=== PATIENT | male | born 1940 | race Two or more races ===

== ENCOUNTER 2016-10-28 15:42 | Inpatient (IN) | payer OTHER ==
[~2016-10-28] VITALS: Ht 167.6 cm; Wt 70.8 kg
[~2016-10-28 15:42] MED LIST: ASPI-991 PO; DIAZ10TA4 PO; HYDR-3326 PO; Isosorbide Mononitrate PO; METO25TA20 PO; PANT40TA2 PO; SIMV20TA2 PO; TAMS-12 PO
--- NOTE | 2016-10-28 15:50 | NUR ---
BIBRA MID STERNAL CHEST PRESSURE 9/10, NON RADIATING X 2 DAYS WITH SOB. PATIENT IS AAO3. APPEARS IN NO ACUTE DISTRESS, RESPIRATION EVEN AND UNLABORED. SKIN IS WARM TO TOUCH AND NON DIAPHORETIC. AFEBRILE. VSS
[2016-10-28] MEDS ORDERED: ALBUTEROL FS 2.5 MG/3 ML VIAL.NEB ONE (16:24)
[2016-10-28] MEDS ORDERED: IPRATROPIUM NEB FS 0.5 MG/2.5 ML AMPUL.NEB ONE (16:24)
[2016-10-28] MEDS ORDERED: IPRATROPIUM NEB FS 0.5 MG/2.5 ML AMPUL.NEB NEB ONE (16:30)
[2016-10-28] MEDS ORDERED: ALBUTEROL FS 2.5 MG/3 ML VIAL.NEB NEB ONE (16:30)
[2016-10-28 16:31] LABS: BASOPHILS # (AUTO) 0.1 /CMM (0.0-0.2); BASOPHILS % (AUTO) 0.8 % (0.0-2.0); EOSINOPHILS # (AUTO) 1.7 /CMM (0.0-0.7); EOSINOPHILS % (AUTO) 23.7 % (0.0-6.0); HEMATOCRIT 44 % (39-51); HEMOGLOBIN 14.9 g/dL (13.5-17.5); LYMPHOCYTES # (AUTO) 0.7 /CMM (0.8-4.8); LYMPHOCYTES % (AUTO) 10.5 % (20.0-44.0); MEAN CORPUSCULAR HEMOGLOBIN 33 PG (26.0-33.0); MEAN CORPUSCULAR HGB CONC 34 g/dl (31.0-36.0); MEAN CORPUSCULAR VOLUME 98 fL (80-96); MONOCYTES # (AUTO) 0.4 /CMM (0.1-1.30); MONOCYTES % (AUTO) 5.3 % (2.0-12.0); NEUTROPHILS # (AUTO) 4.1 /CMM (1.8-8.9); NEUTROPHILS % (AUTO) 59.7 % (43.0-81.0); PLATELET COUNT (AUTO) 305 /CMM (150-450); RDW COEFFICIENT OF VARIATION 15.1 (11.5-15.0); RED BLOOD CELL COUNT(AUTO) 4.48 MIL/uL (4.5-6.0)
[2016-10-28 16:48] LABS: CALCIUM, SERUM 8.8 mg/dL (8.5-10.1); CREATININE 0.9 mg/dL (0.6-1.3); POTASSIUM 4.3 mmol/L (3.5-5.1)
[2016-10-28 16:49] LABS: INR 1.08 (0.87-1.13); PROTHROMBIN TIME 11.2 SECS (9.5-12.7)
[2016-10-28 16:55] LABS: TROPONIN I 0.068 ng/mL (0.00-0.056)
[2016-10-28 17:00] LABS: ALBUMIN 2.7 g/dL (3.4-5.0); BILIRUBIN,DIRECT 0.1 mg/dL (0.0-0.2); BILIRUBIN,TOTAL 0.6 mg/dL (0.2-1.0); TOTAL PROTEIN, SERUM 6.4 g/dL (6.4-8.2)
--- NOTE | 2016-10-28 17:28 | NUR ---
DR ROBERTS ON THE PHONE WITH DR WEST CASTILLO REGARDING PATIENT ADMISSION.
[2016-10-28] MEDS ORDERED: NITROGLYCERIN PACKET 1 GM PACKET TOP ONE (17:30)
[2016-10-28] MEDS ORDERED: ASPIRIN 325 MG TABLET PO ONE (17:30)
[2016-10-28] MEDS ORDERED: FUROSEMIDE 20 MG/2 ML VIAL IV ONE (17:30)
[2016-10-28] MEDS ORDERED: ENOXAPARIN SODIUM 60 MG/0.6 ML DISP.SYRIN SQ ONE (17:30)
[2016-10-28] MEDS ORDERED: ASPIRIN 325 MG TABLET ONE (17:31)
[2016-10-28] MEDS ORDERED: ENOXAPARIN SODIUM 80 MG/0.8 ML DISP.SYRIN SQ ONE (17:32)
[2016-10-28] MEDS ORDERED: NITROGLYCERIN PACKET 1 GM PACKET ONE (17:32)
[2016-10-28] MEDS ORDERED: FUROSEMIDE 20 MG/2 ML VIAL ONE (17:32)
--- NOTE | 2016-10-28 17:40 | NUR ---
PT MEDICATED ORDERED.
[2016-10-28] MEDS ORDERED: TRAZ-144 PO (18:12)
[2016-10-28 18:23] LABS: ABG BASE EXCESS 0.6 mmol/L; ABG OXYGEN SATURATION 93.7 % (92.0-98.5); ABG PCO2 34.1 mmHg (35.0-45.0); ABG PH 7.461 (7.350-7.450); ABG PO2 66.7 mmHg (75.0-100.0); AaDO2 42.2 mmHg; COHb 4.7 % (0.5-1.5); MetHb 0.3 % (0.0-1.5); SITE, ABG Left Radial; VENT MODE, BG room air
--- NOTE | 2016-10-28 18:43 | NUR ---
REPORT GIVEN TO RITIKA SEGURA FOR THIAGO RM 108
--- NOTE | 2016-10-28 18:47 | NUR ---
pt transported to [facility], vss.
--- NOTE | 2016-10-28 19:00 | NUR ---
RN- PT IN THE STATION PACING, DEMANDING FOR PAIN MEDICATION. STATES "I NEED TWO ASPIRINS". WHEN ASKED WHERE PAIN IS, PT REPEATS DEMANDS. CALMING MEASURES RENDERED. INFORMED PT THAT ASPIRIN DOSE WAS ALREADY GIVEN IN THE ER AND THAT HE IS STILL BEING PROCESSED W/ ADMISSION AND MEDICATIONS ARE NOT YET UPDATED W/ SYSTEM. CALLED ADMITTING, ADMITTING STATED THAT "WE ARE WORKING ON IT". CALLED TIME CYCLE OPERATOR AND INFORMED ABOUT SITUATION. ORDERS, PER AM NURSE, WERE FAXED TO PHARMACY ALREADY. UNABLE TO PULL PT'S INFORMATION IN COMPUTER AT THIS TIME. APOLOGIZED TO PT AND REQUESTED PT TO CALMLY WAIT IN BED.
--- NOTE | 2016-10-28 19:15 | NUR ---
RN- PT BACK IN THE NURSING STATION, PACING AND DEMANDING FOR ASPIRIN MEDICATION AGAIN. CALMING MEASURES RENDERED. PT STARTED SCREAMING, "WHY ARE YOU NOT HELPING ME". INFORMED PT THAT WE ARE STILL WAITING FOR ADMITTING TO PROCESS OUR REQUEST. DR CASTILLO WAS INFORMED BY AM SHIFT ABOUT PAIN MEDICATION. ACCORDING TO DR CASTILLO, ORDERS HAS ALREADY BEEN GIVEN AND TO FIND THEM. STILL UNABLE TO BRING UP PT'S FILE IN [facility] AT THIS TIME.
[2016-10-28] MEDS ORDERED: TEMAZEPAM 15 MG CAPSULE PO PRN (19:30)
--- NOTE | 2016-10-28 19:30 | NUR ---
RN- ABLE TO ADD PATIENT BY LOOKING AT ER PT HISTORY. PT CO OF HEADACHE. TYLENOL 650MG PO GIVEN AT THIS TIME. TOLERATED WELL. WILL MONITOR FOR S/SX OF PAIN. PT CALM AT THIS TIME.
[2016-10-28] MEDS ORDERED: ACETAMINOPHEN 325 MG TABLET ONE (19:31)
[2016-10-28] MEDS: ACETAMINOPHEN 325 MG TABLET PO PRN (19:36)
[2016-10-28 20:00] VITALS: BP 119/72
[2016-10-28] MEDS ORDERED: HYDROCODONE/APAP 5/325MG 1 EACH TABLET PO PRN (20:30)
[2016-10-28] MEDS ORDERED: DIAZEPAM 5 MG TABLET PO PRN (20:30)
[2016-10-28] MEDS: METOPROLOL TARTRATE 25 MG TABLET PO SCH (20:58)
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
[2016-10-28] MEDS ORDERED: SIMVASTATIN 20 MG TABLET PO SCH (22:00)
[2016-10-28] MEDS ORDERED: TRAZODONE 50 MG TABLET PO SCH (22:00)
--- NOTE | 2016-10-28 22:00 | NUR ---
RN- SMELLED CIGARETTE SMOKE COMING FROM THE PT'S ROOM. WHEN ASKED IF HE SMOKED PT DENIES. CHECKED PT 'S BATHROOM, CIGARETTE SMOKE IS STRONGER AND FOUND AN EXTINGUISHED CIGARETTE. REINFORMED THE PT THAT [facility] IS A NON SMOKING FACILITY AND DUE TO OXYGEN USE, IT IS DANGEROUS TO SMOKE IN THE ROOM. INFORMED PT THAT THE CIGARETTES NEEDED TO BE CONFISCATED AND WOULD BE RETURN WHEN DISCHARGED. PT BECAME INCREASINGLY AGITATED, AND GRABBED CIGARETTE OFF NURSES HANDS AND SCREAMED "LEAVE ME ALONE, I TOLD YOU TO LEAVE ME ALONE." SECURITY CALLED. PT ABLE TO CALM DOWN. CIGARETTES AND PUBLICATION DIRECTOR CONFISCATED. VALIUM 10 MG PO GIVEN FOR ANXIETY. WILL CONTINUE TO MONITOR BEHAVIOR.
[2016-10-28] MEDS ORDERED: SECONDARY IV SET 1 EA INFUS.SET MC ONE (22:26)
[2016-10-28] MEDS ORDERED: TEMAZEPAM 15 MG CAPSULE ONE (22:50)
--- NOTE | 2016-10-28 23:01 | NUR ---
RN- PT REQUESTED FOR SLEEPING MEDICATION. RESTORIL 15 MG GIVEN PRN FOR SLEEP. TOLERATED WELL. WILL MONITOR SLEEPING PATTERN.
[2016-10-29 04:00] VITALS: BP 104/50
[2016-10-29] MEDS ORDERED: ACETAMINOPHEN 325 MG TABLET ONE (05:40)
[2016-10-29] MEDS: ACETAMINOPHEN 325 MG TABLET PO PRN (05:44)
--- NOTE | 2016-10-29 05:47 | NUR ---
RN- PT CO CHEST PAIN OF 04/18. REQUESTED FOR TYLENOL "2 PILLS". PRN TYLENOL 650 MG GIVEN PO FOR PAIN. TOLERATED WELL. WILL MONITOR FOR S/SX OF PAIN.
[2016-10-29 06:26] LABS: BASOPHILS # (AUTO) 0.1 /CMM (0.0-0.2); BASOPHILS % (AUTO) 0.8 % (0.0-2.0); EOSINOPHILS # (AUTO) 2.5 /CMM (0.0-0.7); HEMATOCRIT 42 % (39-51); HEMOGLOBIN 13.9 g/dL (13.5-17.5); LYMPHOCYTES # (AUTO) 1.5 /CMM (0.8-4.8); LYMPHOCYTES % (AUTO) 17.4 % (20.0-44.0); MEAN CORPUSCULAR HEMOGLOBIN 33 PG (26.0-33.0); MEAN CORPUSCULAR HGB CONC 33 g/dl (31.0-36.0); MEAN CORPUSCULAR VOLUME 100 fL (80-96); MONOCYTES # (AUTO) 0.6 /CMM (0.1-1.30); MONOCYTES % (AUTO) 6.8 % (2.0-12.0); PLATELET COUNT (AUTO) 298 /CMM (150-450); RDW COEFFICIENT OF VARIATION 15.7 (11.5-15.0); RED BLOOD CELL COUNT(AUTO) 4.23 MIL/uL (4.5-6.0); WHITE BLOOD COUNT (AUTO) 8.8 K/uL (4.3-11.0)
--- NOTE | 2016-10-29 06:40 | NUR ---
RN- ALL NEEDS ATTENDED AND MET. NO S/SX OF ACUTE DISTRESS. WILL ENDORSE TO AM SHIFT FOR CONTINUATION OF CARE.
[2016-10-29 06:46] LABS: CREATININE 1.1 mg/dL (0.6-1.3)
[2016-10-29] MEDS ORDERED: PANTOPRAZOLE 40 MG TABLET.DR PO SCH (07:30)
--- NOTE | 2016-10-29 07:30 | NUR ---
RN INTIAL NOTE PT RECEIVED FROM PM NURSE. A/OX3. PT SLEEPING. TELE MONITOR SA W/BBB RATE 60'S. PT HAS BRP WITH MINIMUM ASSISTANCE . PT DIAPER CLEAN AND DRY. LFA 20G FLUSHED AND PATENT RW 18G FLUSHED AND PATENT. NC 2L FOR COMFORT. NO ACUTE S/S OF SOB. REPOSITIONED FOR SAFETY AND COMFORT. NO C/O PAIN. WILL CONTINUE TO MONITOR CLOSELY.
[2016-10-29 08:00] VITALS: BP 122/60
[2016-10-29] MEDS: METOPROLOL TARTRATE 25 MG TABLET PO SCH (08:46)
[2016-10-29] MEDS ORDERED: TAMSULOSIN 0.4 MG CAP.SR.24H PO SCH (09:00)
[2016-10-29] MEDS ORDERED: ISOSORBIDE MONONITRATE (30MG) 30 MG TAB.SR.24H PO SCH (09:00)
[2016-10-29] MEDS ORDERED: ASPIRIN EC 81 MG TABLET.DR PO SCH (09:00)
[2016-10-29 09:15] LABS: EOSINOPHILS % (MANUAL) 27 % (0-4); LYMPHOCYTES % (MANUAL) 13 % (16-48); MONOCYTES % (MANUAL) 13 % (0-11.0); NEUTROPHILS % (MANUAL) 47 (42-76)
[2016-10-29 09:16] LABS: ANISOCYTOSIS 1+; PLATELET ESTIMATE ADEQUATE
[2016-10-29] MEDS ORDERED: NITROGLYCERIN 0.4 MG/TAB BOTTLE SL PRN (09:30)
[2016-10-29] MEDS ORDERED: POTASSIUM CHLORIDE 20 MEQ TAB.PRT.SR PO ONE (09:30)
[2016-10-29 09:55] LABS: CHOLESTEROL 97 mg/dL (<200); HDL CHOLESTEROL 24 mg/dL (40-60); LDL 59 mg/dL (0-99); TRIGLYCERIDES 76 mg/dL (30-150)
--- NOTE | 2016-10-29 10:00 | NUR ---
RN NOTE PT C/O CHEST VERY AGITATED AFTER SEEING DR. ESCALERA YELLING AND SCREAMING SAYING HE DOES NOT WANT TO SEE HIM AGAIN. PT REDIRECTED EDUCATED ON THE IMPORTANCE OF RELAXING AND HOW GETTING UPSET IS MAKING THE PAIN WORSE. DR. DAVID ORDERED 10MG OF VALIUM AND NITRO.
--- NOTE | 2016-10-29 10:15 | NUR ---
RN NOTE PT STATED CHEST PAIN WAS RELIEVED.
[2016-10-29 12:00] VITALS: BP 116/63
--- NOTE | 2016-10-29 12:35 | NUR ---
BOLOGNA MAKER NOTE PT TRANSFERRED TO [facility] VIA AMBULANCE. GAVE REPORT TO EMT AND SPOKE TO JEREL SEGURA AND GAVE REPORT. PT STABLE PT LEFT IN GOWN HAD NO SHIRT ONLY PANTS AND GLASSES IN HIS BELONGINGS. WRIST BAND REMOVED LEFT WITH IV LFA 20G AND RW 18G PATENT AND FLUSHED. ALL DISCHARGE INSTRUCTIONS GIVEN, ALL QUESTIONS AND CONCERNS . BELONGING LIST SIGNED AND TAKEN BY EMT . PT KEPT CLEAN AND DRY. ALL MD ORDERS AND MEDICATIONS CARRIED OUT. Addendum: 10/29/16 at 1539 by MAURO DOUGLASS RN CD WITH MEDICAL INFORMATION SENT WITH PT.
[2016-10-29] MEDS ORDERED: DIAZEPAM 5 MG TABLET PO PRN (15:00)
[2016-10-29] MEDS ORDERED: ENOXAPARIN SODIUM 40 MG/0.4 ML DISP.SYRIN SQ SCH (18:00)
[2016-10-30] MEDS ORDERED: REGADENOSON 0.4 MG/5 ML DISP.SYRIN IVP ONE (08:00)
== END 2016-10-29 12:35 | disposition short-term general hospital (02) | DRG 282 ==
LOC: ER 15:43 → TELE-TD 19:43 → TELE1 19:56
PROVIDERS: ADMIT Internal Medicine; ATTEND Internal Medicine
DX: I21.4 Non-ST elevation (NSTEMI) myocardial infarction (principal); E87.6 Hypokalemia; F17.210 Nicotine dependence, cigarettes, uncomplicated; E78.5 Hyperlipidemia, unspecified; I25.10 Atherosclerotic heart disease of native coronary artery without angina pectoris; Z95.1 Presence of aortocoronary bypass graft; J44.9 Chronic obstructive pulmonary disease, unspecified; I11.9 Hypertensive heart disease without heart failure; N40.0 Benign prostatic hyperplasia without lower urinary tract symptoms; E11.9 Type 2 diabetes mellitus without complications; K57.30 Diverticulosis of large intestine without perforation or abscess without bleeding; N20.0 Calculus of kidney
CPT/HCPCS: 36415; 36600; 71010-TC; 80048-TC; 80061-TC; 80076-TC; 83880; 84484-TC; 85025-TC; 85730-TC; A4606; J1650; J1940; Z7610

== ENCOUNTER 2016-11-20 14:56 | Inpatient (IN) | payer OTHER ==
[~2016-11-20] VITALS: Ht 175.3 cm; Wt 69.4 kg
[~2016-11-20 14:56] MED LIST changes: +TRAZ-144 PO
--- NOTE | 2016-11-20 14:56 | NUR ---
BIB SELF, CC: CHEST PAIN X 4 DAYS, A POOR HISTORIAN, PATIENT IS UNABLE TO PROVIDE ACCURATE HISTORY, PATIENT IS VERBALLY RESPONSIVE, HAS A SCAR IN MID CHEST, CANNOT CONFIRM CARDIAC HISTORY, NO RESPIRATORY DISTRESS, WILL BE SEEN BY MD AT BEDSIDE, PLACED ON MONITOR, WILL CONTINUE TO MONITOR CLOSELY.
[2016-11-20 15:24] LABS: BASOPHILS % (AUTO) 0.5 % (0.0-2.0); EOSINOPHILS # (AUTO) 0.9 /CMM (0.0-0.7); EOSINOPHILS % (AUTO) 16.1 % (0.0-6.0); HEMATOCRIT 45 % (39-51); HEMOGLOBIN 14.6 g/dL (13.5-17.5); LYMPHOCYTES # (AUTO) 0.8 /CMM (0.8-4.8); LYMPHOCYTES % (AUTO) 13.6 % (20.0-44.0); MEAN CORPUSCULAR HEMOGLOBIN 32 PG (26.0-33.0); MEAN CORPUSCULAR HGB CONC 33 g/dl (31.0-36.0); MEAN CORPUSCULAR VOLUME 98 fL (80-96); MONOCYTES # (AUTO) 0.2 /CMM (0.1-1.30); MONOCYTES % (AUTO) 4.4 % (2.0-12.0); NEUTROPHILS # (AUTO) 3.8 /CMM (1.8-8.9); NEUTROPHILS % (AUTO) 65.4 % (43.0-81.0); PLATELET COUNT (AUTO) 362 /CMM (150-450); RDW COEFFICIENT OF VARIATION 16.2 (11.5-15.0); RED BLOOD CELL COUNT(AUTO) 4.55 MIL/uL (4.5-6.0); WHITE BLOOD COUNT (AUTO) 5.7 K/uL (4.3-11.0)
[2016-11-20] MEDS ORDERED: ASPIRIN 325 MG TABLET ONE (15:27)
[2016-11-20] MEDS ORDERED: NITROGLYCERIN 0.4 MG/TAB BOTTLE ONE (15:27)
[2016-11-20] MEDS ORDERED: LORAZEPAM INJ 2 MG/ML VIAL ONE (15:28)
[2016-11-20] MEDS ORDERED: ALBUTEROL FS 2.5 MG/3 ML VIAL.NEB NEB ONE (15:30)
[2016-11-20] MEDS ORDERED: ASPIRIN 325 MG TABLET PO ONE (15:30)
[2016-11-20] MEDS ORDERED: LORAZEPAM INJ 2 MG/ML VIAL IV ONE (15:30)
[2016-11-20] MEDS ORDERED: NITROGLYCERIN 0.4 MG/TAB BOTTLE SL ONE (15:30)
[2016-11-20 15:38] LABS: INR 1.1 (0.87-1.13); PROTHROMBIN TIME 11.5 SECS (9.5-12.7)
[2016-11-20] MEDS ORDERED: ALBUTEROL FS 2.5 MG/3 ML VIAL.NEB ONE (15:38)
[2016-11-20 15:40] LABS: ALBUMIN 2.9 g/dL (3.4-5.0); BILIRUBIN,DIRECT 0.2 mg/dL (0.0-0.2); BILIRUBIN,TOTAL 0.5 mg/dL (0.2-1.0); CALCIUM, SERUM 9.4 mg/dL (8.5-10.1); POTASSIUM 3.6 mmol/L (3.5-5.1); TOTAL PROTEIN, SERUM 6.6 g/dL (6.4-8.2)
[2016-11-20 15:43] LABS: TROPONIN I 0.053 ng/mL (0.00-0.056)
--- NOTE | 2016-11-20 15:47 | NUR ---
Unable to update medication information. Patient is a poor historian, sts "i don't recall my medications". Patient unbale to provide Pharmacy or PCP info. Called family/responsible green party listed on file with no answer and unable to leave a msg.
--- NOTE | 2016-11-20 16:05 | NUR ---
PATIENT ACCEPTED BY DR ANNA DODSON
[2016-11-20 17:00] VITALS: BP 125/69
--- NOTE | 2016-11-20 17:00 | NUR ---
tele planning division superintendent: admission admitted this 76 yr old male pt from [facility] with dx: chest pain/angina. awake, a/ox2-3; poor historian, very forgetful and easily gets irritated and anxious. reality orientation provided prn. noted with old scarring to chest area due to hx: cabg, but refused photo. no skin breakdown noted. oriented to room and surroundings. no c/o chest pain, sob, or any discomfort at this time. instructed to call for assistance. will continue to monitor. left message to dr. tejada re: admission. placed pt on tele sr=70's with bbb and pvc. Addendum: 11/20/16 at 1852 by GILLES CRUZ X RAY PHYSICIAN pt refused full body assessment, but able to check sacral/buttocks area with no skin breakdown noted.
--- NOTE | 2016-11-20 17:50 | NUR ---
tele traveling phlebotomist: notes dr. tejada called back with admitting orders. orders read back and carried out and acknowledged.
[2016-11-20] MEDS ORDERED: DEXTROSE 50%-WATER 50 ML DISP.SYRIN IV PRN (18:00)
[2016-11-20] MEDS ORDERED: INSULIN REGULAR, HUMAN 100 UNIT/ML 3 ML VIAL SQ PRN (18:00)
--- NOTE | 2016-11-20 18:20 | NUR ---
tele microbiology analyst: notes pt having dinner at this time. call light within reach. will monitor.
--- NOTE | 2016-11-20 19:00 | NUR ---
m/s steel rigger: notes pt remains very forgetful and easily gets irritated and anxious; verbally abusive at times. reality orientation provided prn. encouraged to verbalized feelings. 1:1 intervention provided prn. report given to khalida hook) for continuity of care.
--- NOTE | 2016-11-20 19:05 | NUR ---
RN NOTE RECEIVED REPORT. PT AAOX2-3, APPEARS ANXIOUS AND AGITATED. WANTS TO GO HOME. NO C/O CP OR SOB AT THIS TIME, NO S/S OF RESPIRATORY DISTRESS. TELE ATTACHED SHOWING SR WITH BBB'S AND PVC'S. IV INTACT AND PATENT, S/L. CALL LIGHT IN REACH, WILL MONITOR.
[2016-11-20] MEDS: DIAZEPAM 10 MG TABLET PO PRN (19:53)
[2016-11-20 20:00] VITALS: BP 109/61
[2016-11-20] MEDS: METOPROLOL TARTRATE 25 MG TABLET PO SCH (21:00)
[2016-11-20] MEDS: HYDROCODONE/APAP 5/325MG 1 EACH TABLET PO PRN (21:07)
[2016-11-20] MEDS: BLOOD SUGAR DIAGNOSTIC 1 EACH STRIP IN SCH (21:25)
[2016-11-20] MEDS ORDERED: SIMVASTATIN 20 MG TABLET PO SCH (22:00)
[2016-11-20] MEDS ORDERED: TRAZODONE 50 MG TABLET PO SCH (22:00)
[2016-11-21] VITALS: BP 109/77
--- NOTE | 2016-11-21 01:05 | NUR ---
RN NOTE NO DISTRESS NOTED AT THIS TIME. PT RESTING WITH EYES CLOSED. WILL CONT TO MONITOR.
[2016-11-21] MEDS: HYDROCODONE/APAP 5/325MG 1 EACH TABLET PO PRN ×3 (01:43→09:45)
--- NOTE | 2016-11-21 06:43 | NUR ---
RN NOTE NO SIGNIFICANT CHANGES THIS SHIFT. PT AWAKE AND ALERT, EASILY AGITATED AND DEMANDING. VERY ANXIOUS AT TIMES. NO C/O OF CP OR SOB AT THIS TIME. NO S/S OF RESPIRATORY DISTRESS. LEFT WRIST INTACT AND PATENT S/L. SAFETY AND COMFORT MEASURES RENDERED, CALL LIGHT IN REACH. WILL F/U WITH DAY SHIFT FOR WILD. NORCO PRN AT 0600 EFFECTIVE
[2016-11-21] MEDS: BLOOD SUGAR DIAGNOSTIC 1 EACH STRIP IN SCH ×2 (06:52→11:24)
[2016-11-21 07:40] LABS: BASOPHILS # (AUTO) 0.1 /CMM (0.0-0.2); BASOPHILS % (AUTO) 0.9 % (0.0-2.0); EOSINOPHILS # (AUTO) 1.2 /CMM (0.0-0.7); EOSINOPHILS % (AUTO) 14.8 % (0.0-6.0); HEMATOCRIT 41 % (39-51); HEMOGLOBIN 13.8 g/dL (13.5-17.5); LYMPHOCYTES # (AUTO) 1.6 /CMM (0.8-4.8); LYMPHOCYTES % (AUTO) 20.8 % (20.0-44.0); MEAN CORPUSCULAR HEMOGLOBIN 33 PG (26.0-33.0); MEAN CORPUSCULAR HGB CONC 33 g/dl (31.0-36.0); MEAN CORPUSCULAR VOLUME 100 fL (80-96); MONOCYTES # (AUTO) 0.6 /CMM (0.1-1.30); MONOCYTES % (AUTO) 8.2 % (2.0-12.0); NEUTROPHILS # (AUTO) 4.3 /CMM (1.8-8.9); NEUTROPHILS % (AUTO) 55.3 % (43.0-81.0); PLATELET COUNT (AUTO) 288 /CMM (150-450); RDW COEFFICIENT OF VARIATION 16.9 (11.5-15.0); RED BLOOD CELL COUNT(AUTO) 4.16 MIL/uL (4.5-6.0); WHITE BLOOD COUNT (AUTO) 7.9 K/uL (4.3-11.0)
--- NOTE | 2016-11-21 07:50 | NUR ---
AM RN NOTE Received patient sleeping comfortably in his bed. On tele monitor SR 72, no acute distress noted. Resp even and non-labored. Will continue to monitor.
[2016-11-21 08:00] VITALS: BP 117/67
[2016-11-21 08:03] LABS: ALBUMIN 2.8 g/dL (3.4-5.0); BILIRUBIN,TOTAL 0.4 mg/dL (0.2-1.0); CALCIUM, SERUM 8.7 mg/dL (8.5-10.1); CREATININE 1.2 mg/dL (0.6-1.3); TOTAL PROTEIN, SERUM 6.4 g/dL (6.4-8.2)
[2016-11-21 08:28] VITALS: BP 117/67
[2016-11-21] MEDS: METOPROLOL TARTRATE 25 MG TABLET PO SCH (08:28)
[2016-11-21] MEDS ORDERED: PANTOPRAZOLE 40 MG TABLET.DR PO SCH (09:00)
[2016-11-21] MEDS ORDERED: ASPIRIN EC 81 MG TABLET.DR PO SCH (09:00)
[2016-11-21] MEDS ORDERED: TAMSULOSIN 0.4 MG CAP.SR.24H PO SCH (09:00)
[2016-11-21] MEDS ORDERED: ISOSORBIDE MONONITRATE (30MG) 30 MG TAB.SR.24H PO SCH (09:00)
[2016-11-21] MEDS: DIAZEPAM 10 MG TABLET PO PRN (10:54)
[2016-11-21] MEDS ORDERED: Isosorbide Mononitrate PO (11:58)
--- NOTE | 2016-11-21 12:30 | NUR ---
AM RN NOTE Patient seen and assessed by Dr. Molina with new order to discharge home.
--- NOTE | 2016-11-21 13:08 | NUR ---
AM RN NOTE Patient awake, A/O X3 verbally responsive able to make needs known. Denies any pain or discomfort at this time. Discharge instructions on medications and teachings given and pt verbalize understanding. MD aware about all lab results. Belongings endorsed and signed. HL and ID band removed. Pt refused to notify his family about discharge. Called Taxi per pt request. Pt discharged/ left unit at this time as accompanied by AUTOMOBILE ACCESSORIES SALESPERSON to downstairs with all his belongings.
== END 2016-11-21 14:16 | disposition home or self-care (01) | DRG 392 ==
LOC: ER 14:58 → TELE 16:20
PROVIDERS: ADMIT Internal Medicine; ATTEND Internal Medicine
DX: K21.9 Gastro-esophageal reflux disease without esophagitis (principal); R07.9 Chest pain, unspecified; I25.10 Atherosclerotic heart disease of native coronary artery without angina pectoris; Z95.1 Presence of aortocoronary bypass graft; I25.2 Old myocardial infarction; J44.9 Chronic obstructive pulmonary disease, unspecified; N40.0 Benign prostatic hyperplasia without lower urinary tract symptoms; E11.9 Type 2 diabetes mellitus without complications; F17.210 Nicotine dependence, cigarettes, uncomplicated; I10 Essential (primary) hypertension; E78.5 Hyperlipidemia, unspecified
CPT/HCPCS: 36415; 71010-TC; 80048-TC; 80053-TC; 80061-TC; 80076-TC; 82962-TC; 84484-TC; 85025-TC; 85378-TC; 85730-TC; 87081-TC; A4606; J1815; J2060; Z7610

== ENCOUNTER 2016-12-12 15:58 | Inpatient (IN) | payer OTHER ==
[~2016-12-12] VITALS: Ht 175.3 cm; Wt 71.8 kg
[2016-12-12 16:13] LABS: BASOPHILS # (AUTO) 0.2 /CMM (0.0-0.2); BASOPHILS % (AUTO) 2.3 % (0.0-2.0); EOSINOPHILS # (AUTO) 0.1 /CMM (0.0-0.7); HEMATOCRIT 42 % (39-51); HEMOGLOBIN 14.2 g/dL (13.5-17.5); LYMPHOCYTES # (AUTO) 0.6 /CMM (0.8-4.8); LYMPHOCYTES % (AUTO) 9.5 % (20.0-44.0); MEAN CORPUSCULAR HEMOGLOBIN 33 PG (26.0-33.0); MEAN CORPUSCULAR HGB CONC 34 g/dl (31.0-36.0); MEAN CORPUSCULAR VOLUME 97 fL (80-96); MONOCYTES # (AUTO) 0.5 /CMM (0.1-1.30); NEUTROPHILS # (AUTO) 5.4 /CMM (1.8-8.9); NEUTROPHILS % (AUTO) 79.2 % (43.0-81.0); PLATELET COUNT (AUTO) 280 /CMM (150-450); RDW COEFFICIENT OF VARIATION 15.9 (11.5-15.0); RED BLOOD CELL COUNT(AUTO) 4.31 MIL/uL (4.5-6.0); WHITE BLOOD COUNT (AUTO) 6.8 K/uL (4.3-11.0)
[2016-12-12 16:22] LABS: CALCIUM, SERUM 8.5 mg/dL (8.5-10.1)
[2016-12-12 16:26] LABS: INR 1.06 (0.87-1.13)
[2016-12-12 16:31] LABS: TROPONIN I 0.049 ng/mL (0.00-0.056)
[2016-12-12] MEDS ORDERED: DIAZEPAM 10 MG TABLET ONE (19:45)
[2016-12-12] MEDS: DIAZEPAM 10 MG TABLET PO PRN (19:49)
[2016-12-12 20:00] VITALS: BP 103/58
[2016-12-12] MEDS ORDERED: DEXTROSE 50%-WATER 50 ML DISP.SYRIN IV PRN (21:00)
[2016-12-12] MEDS ORDERED: INSULIN REGULAR, HUMAN 100 UNIT/ML 3 ML VIAL SQ PRN (21:00)
[2016-12-12] MEDS ORDERED: *INSULIN REGULAR(HUMULIN R)HUM 100 UNIT/ML VIAL SQ PRN (21:00)
[2016-12-12] MEDS ORDERED: ACETAMINOPHEN 325 MG TABLET PO PRN (21:00)
[2016-12-12] MEDS ORDERED: TAMSULOSIN 0.4 MG CAP.SR.24H ONE (21:23)
[2016-12-12] MEDS ORDERED: SIMVASTATIN 20 MG TABLET ONE (21:23)
[2016-12-12] MEDS ORDERED: TRAZODONE 50 MG TABLET ONE (21:24)
[2016-12-12] MEDS: BLOOD SUGAR DIAGNOSTIC 1 EACH STRIP VI SCH (21:40)
[2016-12-12] MEDS: TRAZODONE 50 MG TABLET PO SCH (21:40)
[2016-12-12] MEDS: SIMVASTATIN 20 MG TABLET PO SCH (21:40)
[2016-12-12] MEDS ORDERED: TAMSULOSIN 0.4 MG CAP.SR.24H PO SCH (22:00)
[2016-12-12] MEDS ORDERED: BLOOD SUGAR DIAGNOSTIC 1 EACH STRIP IN SCH (22:00)
[2016-12-12] MEDS ORDERED: ZOLPIDEM TARTRATE 5 MG TABLET ONE (23:51)
[2016-12-12] MEDS: ZOLPIDEM TARTRATE 5 MG TABLET PO PRN (23:56)
[2016-12-13] VITALS: BP 119/59
[2016-12-13] MEDS ORDERED: HYDROCODONE/APAP 5/325MG 1 EACH TABLET ONE (06:22)
[2016-12-13] MEDS: HYDROCODONE/APAP 5/325MG 1 EACH TABLET PO PRN ×2 (06:28→13:45)
[2016-12-13 06:58] VITALS: BP 125/66
[2016-12-13] MEDS ORDERED: TAMSULOSIN 0.4 MG CAP.SR.24H PO SCH ×2 (07:15→11:30)
[2016-12-13] MEDS: BLOOD SUGAR DIAGNOSTIC 1 EACH STRIP VI SCH ×4 (07:30→21:56)
[2016-12-13 07:35] LABS: BASOPHILS # (AUTO) 0.1 /CMM (0.0-0.2); BASOPHILS % (AUTO) 0.8 % (0.0-2.0); EOSINOPHILS # (AUTO) 0.4 /CMM (0.0-0.7); EOSINOPHILS % (AUTO) 6.3 % (0.0-6.0); HEMATOCRIT 42 % (39-51); HEMOGLOBIN 13.9 g/dL (13.5-17.5); LYMPHOCYTES # (AUTO) 1.2 /CMM (0.8-4.8); LYMPHOCYTES % (AUTO) 16.9 % (20.0-44.0); MEAN CORPUSCULAR HEMOGLOBIN 33 PG (26.0-33.0); MEAN CORPUSCULAR HGB CONC 33 g/dl (31.0-36.0); MEAN CORPUSCULAR VOLUME 99 fL (80-96); MONOCYTES # (AUTO) 0.6 /CMM (0.1-1.30); MONOCYTES % (AUTO) 9.2 % (2.0-12.0); NEUTROPHILS # (AUTO) 4.7 /CMM (1.8-8.9); NEUTROPHILS % (AUTO) 66.8 % (43.0-81.0); PLATELET COUNT (AUTO) 271 /CMM (150-450); RDW COEFFICIENT OF VARIATION 16.9 (11.5-15.0); RED BLOOD CELL COUNT(AUTO) 4.26 MIL/uL (4.5-6.0)
[2016-12-13 07:56] LABS: CALCIUM, SERUM 8.8 mg/dL (8.5-10.1); CREATININE 0.9 mg/dL (0.6-1.3); POTASSIUM 4.5 mmol/L (3.5-5.1)
[2016-12-13 08:00] VITALS: BP 125/66
[2016-12-13] MEDS: ASPIRIN EC 81 MG TABLET.DR PO SCH (08:48)
[2016-12-13] MEDS: DIAZEPAM 10 MG TABLET PO PRN (11:06)
[2016-12-13] MEDS ORDERED: DIAZEPAM 10 MG TABLET PO PRN (11:30)
[2016-12-13] MEDS ORDERED: METOPROLOL TARTRATE 25 MG TABLET PO SCH (11:30)
[2016-12-13] MEDS: PANTOPRAZOLE 40 MG TABLET.DR PO SCH (11:30)
[2016-12-13] MEDS: DIVALPROEX SODIUM 125 MG TABLET.DR PO SCH ×2 (11:30→21:48)
[2016-12-13] MEDS ORDERED: ASPIRIN EC 81 MG TABLET.DR PO SCH (11:30)
[2016-12-13] MEDS: ESCITALOPRAM OXALATE (10 MG) 10 MG TABLET PO SCH (11:30)
[2016-12-13] MEDS ORDERED: HYDROCODONE/APAP 5/325MG 1 EACH TABLET PO PRN (11:30)
[2016-12-13] MEDS ORDERED: SIMVASTATIN 20 MG TABLET PO SCH (11:30)
[2016-12-13] MEDS ORDERED: ISOSORBIDE MONONITRATE 60 MG TAB.SR.24H PO SCH (11:30)
[2016-12-13 12:00] VITALS: BP 113/65
[2016-12-13] MEDS ORDERED: OLANZAPINE 2.5 MG TABLET PO ONE (15:30)
[2016-12-13 16:21] VITALS: BP 110/64
[2016-12-13 19:00] VITALS: BP 138/61
[2016-12-13] MEDS: SIMVASTATIN 20 MG TABLET PO SCH (21:48)
[2016-12-13] MEDS: TRAZODONE 50 MG TABLET PO SCH (21:48)
[2016-12-13] MEDS: CARVEDILOL 3.125 MG TABLET PO SCH (21:49)
[2016-12-13] MEDS: ZOLPIDEM TARTRATE 5 MG TABLET PO PRN (23:17)
[2016-12-14] VITALS: BP 123/61
[2016-12-14] MEDS: HYDROCODONE/APAP 5/325MG 1 EACH TABLET PO PRN ×2 (00:27→04:34)
[2016-12-14 05:30] VITALS: BP 123/66
[2016-12-14] MEDS: BLOOD SUGAR DIAGNOSTIC 1 EACH STRIP VI SCH ×2 (06:49→12:12)
[2016-12-14 08:00] VITALS: BP 115/59
[2016-12-14] MEDS: CARVEDILOL 3.125 MG TABLET PO SCH (09:00)
[2016-12-14] MEDS ORDERED: ISOSORBIDE MONONITRATE (30MG) 30 MG TAB.SR.24H PO SCH (09:00)
[2016-12-14] MEDS: ESCITALOPRAM OXALATE (10 MG) 10 MG TABLET PO SCH (09:33)
[2016-12-14] MEDS: ASPIRIN EC 81 MG TABLET.DR PO SCH (09:33)
[2016-12-14] MEDS: DIVALPROEX SODIUM 125 MG TABLET.DR PO SCH (09:34)
[2016-12-14] MEDS: PANTOPRAZOLE 40 MG TABLET.DR PO SCH (09:34)
[2016-12-14] MEDS ORDERED: LISINOPRIL (5MG) 5 MG TABLET PO SCH (10:00)
[2016-12-14 12:00] VITALS: BP 152/75
== END 2016-12-14 15:10 | disposition home or self-care (01) | DRG 392 ==
LOC: ER 15:59 → TELE 18:11
PROVIDERS: ADMIT Internal Medicine; ATTEND Internal Medicine
DX: K21.9 Gastro-esophageal reflux disease without esophagitis (principal); R07.89 Other chest pain; E11.9 Type 2 diabetes mellitus without complications; E78.5 Hyperlipidemia, unspecified; I25.10 Atherosclerotic heart disease of native coronary artery without angina pectoris; Z95.1 Presence of aortocoronary bypass graft; N40.0 Benign prostatic hyperplasia without lower urinary tract symptoms; J44.9 Chronic obstructive pulmonary disease, unspecified; F39 Unspecified mood [affective] disorder; I25.5 Ischemic cardiomyopathy; I10 Essential (primary) hypertension; Z91.19 Patient's noncompliance with other medical treatment and regimen; F17.210 Nicotine dependence, cigarettes, uncomplicated; Z79.899 Other long term (current) drug therapy
CPT/HCPCS: 36415; 71010-TC; 80048-TC; 82962-TC; 84484-TC; 85025-TC; 85730-TC; 87081-TC; A4606; J1815; Z7610

== ENCOUNTER 2017-01-05 15:27 | Emergency (ER) | payer OTHER ==
[~2017-01-05] VITALS: Ht 175.3 cm; Wt 71.7 kg
--- NOTE | 2017-01-05 15:29 | NUR ---
Pt bbra from home for chest pain x 1 week, worsening today. Placed on monitor. Gowned pt. Made comfortable. Awaiting md order.
[2017-01-05] MEDS ORDERED: NITROGLYCERIN PACKET 1 GM PACKET TD ONE (15:30)
[2017-01-05] MEDS ORDERED: ASPIRIN 81 MG TAB.CHEW PO ONE (15:30)
--- NOTE | 2017-01-05 15:30 | NUR ---
PT HAS LEFT HAND #18 IV ACCESS. PATENT.
--- NOTE | 2017-01-05 15:35 | NUR ---
ELECTRICAL SUBCONTRACTOR AT BEDSIDE FOR BLOOD DRAW.
--- NOTE | 2017-01-05 15:37 | NUR ---
CALLED NURSING SUP. FOR TELE BED
--- NOTE | 2017-01-05 15:45 | NUR ---
DR STEWART AT BEDSIDE FOR EVAL
[2017-01-05 15:46] LABS: BASOPHILS % (AUTO) 0.7 % (0.0-2.0); EOSINOPHILS # (AUTO) 0.2 /CMM (0.0-0.7); EOSINOPHILS % (AUTO) 2.6 % (0.0-6.0); HEMATOCRIT 45 % (39-51); HEMOGLOBIN 14.9 g/dL (13.5-17.5); LYMPHOCYTES # (AUTO) 0.7 /CMM (0.8-4.8); LYMPHOCYTES % (AUTO) 10.9 % (20.0-44.0); MEAN CORPUSCULAR HEMOGLOBIN 32 PG (26.0-33.0); MEAN CORPUSCULAR HGB CONC 33 g/dl (31.0-36.0); MEAN CORPUSCULAR VOLUME 97 fL (80-96); MONOCYTES # (AUTO) 0.4 /CMM (0.1-1.30); MONOCYTES % (AUTO) 5.8 % (2.0-12.0); NEUTROPHILS # (AUTO) 4.8 /CMM (1.8-8.9); PLATELET COUNT (AUTO) 273 /CMM (150-450); RDW COEFFICIENT OF VARIATION 16.3 (11.5-15.0); RED BLOOD CELL COUNT(AUTO) 4.66 MIL/uL (4.5-6.0); WHITE BLOOD COUNT (AUTO) 6.2 K/uL (4.3-11.0)
[2017-01-05] MEDS ORDERED: NITROGLYCERIN PACKET 1 GM PACKET ONE (15:47)
[2017-01-05] MEDS ORDERED: ASPIRIN EC 81 MG TABLET.DR PO ONE (15:47)
--- NOTE | 2017-01-05 15:49 | NUR ---
LEGAL CASHIER AT BEDSIDE
[2017-01-05 15:57] LABS: CALCIUM, SERUM 7.9 mg/dL (8.5-10.1); CREATININE 0.9 mg/dL (0.6-1.3); POTASSIUM 3.6 mmol/L (3.5-5.1)
[2017-01-05 16:00] LABS: INR 1.12 (0.87-1.13); PROTHROMBIN TIME 11.8 SECS (9.5-12.7)
[2017-01-05 16:04] LABS: ALBUMIN 2.9 g/dL (3.4-5.0); BILIRUBIN,DIRECT 0.1 mg/dL (0.0-0.2); BILIRUBIN,TOTAL 0.5 mg/dL (0.2-1.0); TOTAL PROTEIN, SERUM 5.9 g/dL (6.4-8.2)
[2017-01-05 16:06] LABS: TROPONIN I 0.057 ng/mL (0.00-0.056)
--- NOTE | 2017-01-05 16:12 | NUR ---
DR.SHAO ART
--- NOTE | 2017-01-05 16:30 | NUR ---
CALLED FOR FOOD TRAY
[2017-01-05 16:31] VITALS: BP 102/60
[2017-01-06] MEDS ORDERED: ASPI81TA2 PO (17:21)
== END 2017-01-05 17:21 | disposition home or self-care (01) ==
LOC: ER 15:29
DX: R07.9 Chest pain, unspecified (principal); I10 Essential (primary) hypertension; E11.9 Type 2 diabetes mellitus without complications; E78.5 Hyperlipidemia, unspecified; F17.200 Nicotine dependence, unspecified, uncomplicated; Z95.1 Presence of aortocoronary bypass graft; Z90.89 Acquired absence of other organs; Z79.82 Long term (current) use of aspirin
CPT/HCPCS: 36415; 71010; 80048; 80076; 84484; 85025; 85730; 93005; 99285; A4606; Z7610

== ENCOUNTER 2017-01-06 16:29 | Inpatient (IN) | payer OTHER ==
[~2017-01-06] VITALS: Ht 175.3 cm; Wt 69.4 kg
--- NOTE | 2017-01-06 16:35 | NUR ---
[id number] FROM HOME DUE TO CHEST PAIN, SHARP, 5/10, NON RADIATING, STARTED 0600 TODAY. ASA AND NITRO GIVEN ON FIELD,. PATIENT IS AWAKE, HOWEVER PATIENT APPEARS IN MILD DISTRESS. SATING WELL ON ROOM,. SKIN IS WARM TO TOUCH AND NON DIAPHORETIC. PATIENT IS AFEBRILE. GOWNED PT AND PLACED ON TELE MONITOR. IV ON LEFT HAND 18 NOTED.
--- NOTE | 2017-01-06 16:37 | NUR ---
TUBE MAKING MACHINE OPERATOR AT
--- NOTE | 2017-01-06 16:37 | NUR ---
MD MCCLURE AT
--- NOTE | 2017-01-06 16:42 | NUR ---
IV NS STARTED ORDERED
--- NOTE | 2017-01-06 16:50 | NUR ---
XRAY IN PROGRESS AT BS
[2017-01-06 16:55] LABS: BASOPHILS % (AUTO) 0.4 % (0.0-2.0); EOSINOPHILS # (AUTO) 0.1 /CMM (0.0-0.7); EOSINOPHILS % (AUTO) 1.7 % (0.0-6.0); HEMATOCRIT 41 % (39-51); LYMPHOCYTES # (AUTO) 0.9 /CMM (0.8-4.8); LYMPHOCYTES % (AUTO) 14.3 % (20.0-44.0); MEAN CORPUSCULAR HEMOGLOBIN 33 PG (26.0-33.0); MEAN CORPUSCULAR HGB CONC 34 g/dl (31.0-36.0); MEAN CORPUSCULAR VOLUME 96 fL (80-96); MONOCYTES # (AUTO) 0.4 /CMM (0.1-1.30); MONOCYTES % (AUTO) 7.3 % (2.0-12.0); NEUTROPHILS # (AUTO) 4.7 /CMM (1.8-8.9); NEUTROPHILS % (AUTO) 76.3 % (43.0-81.0); PLATELET COUNT (AUTO) 263 /CMM (150-450); RDW COEFFICIENT OF VARIATION 17.1 (11.5-15.0); RED BLOOD CELL COUNT(AUTO) 4.26 MIL/uL (4.5-6.0); WHITE BLOOD COUNT (AUTO) 6.1 K/uL (4.3-11.0)
[2017-01-06] MEDS ORDERED: IOHEXOL-350 100 ML VIAL IV ONE (16:59)
[2017-01-06] MEDS ORDERED: IV NS 0.9% 250 ML IV ONE (16:59)
[2017-01-06] MEDS ORDERED: IV NS 0.9% 500 ML IV ONE (17:00)
[2017-01-06] MEDS ORDERED: IV NS 0.9% 500 ML BAG IV ONE (17:00)
[2017-01-06 17:04] LABS: CALCIUM, SERUM 8.7 mg/dL (8.5-10.1); CARBON DIOXIDE 29 mmol/L (21-32); CHLORIDE 102 mmol/L (98-107); GLUCOSE 122 mg/dL (74-106); POTASSIUM 3.5 mmol/L (3.5-5.1); SODIUM SERUM 139 mmol/L (136-145); UREA NITROGEN, BLOOD 17 mg/dL (7-18)
--- NOTE | 2017-01-06 17:06 | NUR ---
ptient was taken to ct
[2017-01-06 17:07] LABS: INR 1.08 (0.87-1.13); PROTHROMBIN TIME 11.6 SECS (9.5-12.7)
[2017-01-06 17:12] LABS: TROPONIN I 0.067 ng/mL (0.00-0.056)
[2017-01-06 17:16] LABS: ALANINE AMINOTRANSFERASE 27 U/L (12-78); ALBUMIN 3.1 g/dL (3.4-5.0); ALKALINE PHOSPHATASE 84 U/L (46-116); ASPARTATE AMINOTRANSFERASE 15 U/L (15-37); B-TYPE NATRIURETIC PEPTIDE 4078 PG/ML (0-125); BILIRUBIN,DIRECT 0.1 mg/dL (0.0-0.2); BILIRUBIN,TOTAL 0.4 mg/dL (0.2-1.0); TOTAL PROTEIN, SERUM 6.4 g/dL (6.4-8.2)
[2017-01-06] MEDS ORDERED: ASPI81TA2 PO (17:21)
--- NOTE | 2017-01-06 17:36 | NUR ---
CALLED NURSING ENVIRONMENTAL SERVICES PROJECT MANAGER FOR TELE BED
--- NOTE | 2017-01-06 17:38 | NUR ---
CALLED MILENA FOR READ ON CTA. PER MILENA IT STUDY IS BEING DICTATED
--- NOTE | 2017-01-06 17:39 | NUR ---
PAGED DR CASTILLO FOR DOCTOR TO DOCTOR
--- NOTE | 2017-01-06 18:07 | NUR ---
CALLED MILENA FOR STATUS ON READ OF CTA
--- NOTE | 2017-01-06 18:12 | NUR ---
TELE 306-2
--- NOTE | 2017-01-06 18:13 | NUR ---
PER LELIA AT [facility] RADIOLOGIST IS ALMOST DONE WITH REPORT. SHOULD BE COMPLETE WITHIN 5 MINUTES
--- NOTE | 2017-01-06 18:21 | NUR ---
ENDOSRSED PT TO NURSE BAUM FOR CONTINUITY OF CARE
--- NOTE | 2017-01-06 18:30 | NUR ---
REPAGED DR CASTILLO FOR DR MCCLURE
--- NOTE | 2017-01-06 18:30 | NUR ---
PT TRANSFERRED TO 3W. VSS
--- NOTE | 2017-01-06 18:35 | NUR ---
DR MCCLURE ON THE LINE WITH DR CASTILLO
--- NOTE | 2017-01-06 18:45 | NUR ---
RN NOTES RECEIVED PT FROM ER. INITIAL VS T- 98.6 BP-142/71 P-66 R- 17 O2 SAT 98% ON O2 @ 2LPM NC. IN NO APPARENT DISTRESS. RESPIRATIONS EVEN AND UNLABORED. PT ADMITTED FOR CHEST PAIN , ADMITTED TO TELE. UNDER [place]. PAGED DR CASTILLO FOR ADMISSION ORDERS. WILL AWAIT CALL BACK. WILL ENDORSE TO ONCOMING SHIFT
--- NOTE | 2017-01-06 19:00 | NUR ---
RN NOTES RECEIVED LACTIC ACID RESULT (2.1). PAGED DR CASTILLO. WILL ENDORSE TO ONCOMING SHIFT
[2017-01-06 20:00] VITALS: BP_SYST 111; BP_SYST 119; BP_DIAS 51; BP_DIAS 67
[2017-01-06] MEDS ORDERED: ACETAMINOPHEN 325 MG TABLET PO PRN (20:00)
[2017-01-06] MEDS ORDERED: DIAZEPAM 10 MG TABLET PO PRN (20:00)
[2017-01-06] MEDS: METOPROLOL TARTRATE 25 MG TABLET PO SCH (20:28)
[2017-01-06] MEDS: HYDROCODONE/APAP 5/325MG 1 EACH TABLET PO PRN (20:29)
[2017-01-06] MEDS ORDERED: ENOXAPARIN SODIUM 40 MG/0.4 ML DISP.SYRIN SQ SCH (21:00)
[2017-01-06] MEDS ORDERED: TRAZODONE 50 MG TABLET PO SCH (22:00)
[2017-01-06] MEDS ORDERED: SIMVASTATIN 20 MG TABLET PO SCH (22:00)
[2017-01-06] MEDS ORDERED: TAMSULOSIN 0.4 MG CAP.SR.24H PO SCH (22:00)
[2017-01-07] VITALS: BP 107/62
[2017-01-07] MEDS: HYDROCODONE/APAP 5/325MG 1 EACH TABLET PO PRN (05:49)
[2017-01-07 07:21] VITALS: BP 123/62
--- NOTE | 2017-01-07 07:25 | NUR ---
SPRING COILER NOTES PATIENT IN BED, IN NO APPARENT DISTRESS, DENIES SOB, DENIES PAIN. KEEP PATIENT NPO INCASE DR BOOGIE WANTS TO RUN SOME TESTS. PATIENT AGITATED BECAUSE HE CANT EAT.RELAYED ABNORMAL LACTIC ACID TO DR CASTILLO PER DR CASTILLO REPEAT LACTIC ACID IN AM. ALL NEEDS MET, KEPT CLEAN AND DRY.
[2017-01-07] MEDS ORDERED: PANTOPRAZOLE 40 MG TABLET.DR PO SCH (07:30)
--- NOTE | 2017-01-07 07:30 | NUR ---
MS RN INITIAL NOTES RECEIVED REPORT FROM TELECOMMUNICATION TOWER TECHNICIAN. PT IS AWAKE AND WALKING AROUND. NO SIGNS OF SOB AND NO COMPLAINTS OF PAIN AT THIS MOMENT. VITALS ARE WNL. LEXISCAN WAS ORDERED FOR THIS MORNING. WILL CONTINUE TO MONITOR.
--- NOTE | 2017-01-07 08:55 | NUR ---
MS IMELDA MARTIN PT WAS TAKEN DOWN FOR LEXMANANAN IN WHEELCHAIR
[2017-01-07] MEDS ORDERED: ASPIRIN 81 MG TAB.CHEW PO SCH (09:00)
[2017-01-07] MEDS ORDERED: RANOLAZINE 500 MG PO SCH (09:00)
[2017-01-07] MEDS ORDERED: REGADENOSON 0.4 MG/5 ML DISP.SYRIN IVP ONE (09:00)
[2017-01-07] MEDS ORDERED: ISOSORBIDE MONONITRATE (30MG) 30 MG TAB.SR.24H PO SCH (09:00)
[2017-01-07 09:21] VITALS: BP 123/62
[2017-01-07 10:41] VITALS: BP 123/62
[2017-01-07] MEDS: METOPROLOL TARTRATE 25 MG TABLET PO SCH (10:41)
--- NOTE | 2017-01-07 11:13 | NUR ---
Social service consult requested by Dr. Molina for non-compliance and pt. residing alone. Per H&P report by Dr. Molina, pt. 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 Pt. had a coronary angiography in [facility] on 11/10/2016. Coronary angiography revealed patent WANG-LAD and SVG-OM grafts. There was occlusion lesion in mid RCA but with good left to right collaterals, medical management was recommended. Patient has multiple admissions to [facility] and [facility] for chest pain with mildly elevated troponin, medications were adjusted. During the last admission, patient was instructed and educated about the medications and importance of compliance with treatment, he was taking aspirin for insomnia. Patient presented to [facility] last night with similar chest pain. He is taking aspirin only at home. Patient states he is not taking other medications since he does not have them. SW met with pt. bedside. pt. is A&O x 3. SW is familiar with pt. from a previous admission on December 12, 2016. Pt. was friendly and cooperative with SW during the assessment. [place] [id number] [address] [place] [address]. Pt's nephew Leland no longer resides with him. Pt. states he receives social security income per month but is unclear as to the amount he is receiving. Pt. states he is the payee for his SSI. Pt. is ambulatory and independent with his ADL's. Pt. states he tends to forget taking his medications regularly. Pt. does not qualify for [facility] ([facility] Pt. states he has two sisters Dennise and Maricarmen who reside in [facility]. Pt. also has a nephew Antelmo who provides some support. Pt. stated his nephew Antelmo as his emergency contact, however he could not provide SW with Antelmo's phone number. Pt. denies any suicidal/homicidal ideations and visual/auditory hallucinations at this time. Pt. has a history of psychiatric hospitalizations and his last hospitalization was at [facility] in November 2016. Pt. denies any history of drug or alcohol use. Pt. smokes one pack of cigarettes per day. SW left a voicemail for pt's nephew Leland to get more information on pt's home situation. MIKAYLA consulted with special education case manager Juanjose and informed him of pt's home situation and possible placement.
--- NOTE | 2017-01-07 12:52 | NUR ---
MS RN PT NAUSEOUS PT COMPLAINED OF FEELING NAUSEOUS WHILE EATING LUNCH, SPITTING UP A LITTLE PHLEGM. ATTEMPTED TO CONTACT DR. CASTILLO, UNABLE TO REACH HIM. LEFT A MESSAGE AT HIS OFFICE REGARDING THE PATIENTS COMPLAINT
[2017-01-07] MEDS ORDERED: ONDANSETRON HCL/PF 4 MG/2 ML VIAL IV PRN (13:30)
[2017-01-07 14:56] LABS: BASOPHILS % (AUTO) 0.4 % (0.0-2.0); CALCIUM, SERUM 8.5 mg/dL (8.5-10.1); CARBON DIOXIDE 30 mmol/L (21-32); CHLORIDE 103 mmol/L (98-107); CREATININE 0.9 mg/dL (0.6-1.3); EOSINOPHILS # (AUTO) 0.2 /CMM (0.0-0.7); EOSINOPHILS % (AUTO) 2.8 % (0.0-6.0); GLUCOSE 124 mg/dL (74-106); HEMATOCRIT 39 % (39-51); HEMOGLOBIN 13.1 g/dL (13.5-17.5); LYMPHOCYTES # (AUTO) 0.8 /CMM (0.8-4.8); LYMPHOCYTES % (AUTO) 14.4 % (20.0-44.0); MEAN CORPUSCULAR HEMOGLOBIN 33 PG (26.0-33.0); MEAN CORPUSCULAR HGB CONC 33 g/dl (31.0-36.0); MEAN CORPUSCULAR VOLUME 98 fL (80-96); MONOCYTES # (AUTO) 0.4 /CMM (0.1-1.30); MONOCYTES % (AUTO) 7.2 % (2.0-12.0); NEUTROPHILS # (AUTO) 4.2 /CMM (1.8-8.9); NEUTROPHILS % (AUTO) 75.2 % (43.0-81.0); PLATELET COUNT (AUTO) 240 /CMM (150-450); POTASSIUM 4.1 mmol/L (3.5-5.1); RDW COEFFICIENT OF VARIATION 17.1 (11.5-15.0); RED BLOOD CELL COUNT(AUTO) 4.03 MIL/uL (4.5-6.0); SODIUM SERUM 139 mmol/L (136-145); UREA NITROGEN, BLOOD 18 mg/dL (7-18); WHITE BLOOD COUNT (AUTO) 5.6 K/uL (4.3-11.0)
--- NOTE | 2017-01-07 15:00 | NUR ---
MS/RN Lexiscan results Lexiscan resulted as negative, Dr Yu to be informed.
[2017-01-07 15:11] LABS: CHOLESTEROL 102 mg/dL (<200); HDL CHOLESTEROL 28 mg/dL (40-60); LDL 58 mg/dL (0-99); THYROID STIMULATING HORMONE 0.885 uIU/mL (0.358-3.74); TRIGLYCERIDES 106 mg/dL (30-150)
--- NOTE | 2017-01-07 15:20 | NUR ---
MS/RN Dr Molina Call received from Dr Molina - patient to be discharged to home with prescriptions already in chart. Needs to follow up with primary care doctor in 5-7 days.
--- NOTE | 2017-01-07 15:45 | NUR ---
MS/hedis review nurse instructions Discharge instructions given to patient, educated about the importance of filling prescriptions and taking all medications at the prescribed times. Patient stated that he understood. Exit care signed, copy made and placed in chart. Medical record copied and given to patient. Time allowed for all questions to be answered and all feears to be addressed.
--- NOTE | 2017-01-07 16:00 | NUR ---
MS/team physician Patient discharged home in stable condition. All personal belongings with patient and signed for on property list. Heplock, tele monitor and name band removed. Escorted to main lobby by PROVIDER RELATIONS CONSULTANT, taxi voucher provided.
[2017-01-08] MEDS ORDERED: LOSA25TA13 PO (17:50)
[2017-01-08] MEDS ORDERED: ATOR10TA PO (17:50)
[2017-01-08] MEDS ORDERED: ESCI10TA PO (17:50)
[2017-01-08] MEDS ORDERED: PANT40TA4 PO (17:50)
[2017-01-08] MEDS ORDERED: ISOS60TA4 PO (17:50)
[2017-01-08] MEDS ORDERED: CLON0.5T4 PO (17:50)
[2017-01-08] MEDS ORDERED: PIOG45TA PO (17:50)
[2017-01-08] MEDS ORDERED: ASPI-869 PO (17:50)
[2017-01-08] MEDS ORDERED: DIVA125C5 PO (17:50)
[2017-01-08] MEDS ORDERED: TRAM50TA2 PO (17:50)
[2017-01-08] MEDS ORDERED: TAMS-12 PO (17:50)
[2017-01-08] MEDS ORDERED: CARV3.122 PO (17:52)
== END 2017-01-07 15:20 | disposition home or self-care (01) | DRG 384 ==
LOC: ER 16:29 → TELE 18:16
PROVIDERS: ADMIT Internal Medicine; ATTEND Internal Medicine
DX: K27.9 Peptic ulcer, site unspecified, unspecified as acute or chronic, without hemorrhage or perforation (principal); I74.8 Embolism and thrombosis of other arteries; E87.2 Acidosis; I50.22 Chronic systolic (congestive) heart failure; E11.9 Type 2 diabetes mellitus without complications; E78.5 Hyperlipidemia, unspecified; F17.210 Nicotine dependence, cigarettes, uncomplicated; F39 Unspecified mood [affective] disorder; I25.10 Atherosclerotic heart disease of native coronary artery without angina pectoris; I25.2 Old myocardial infarction; J44.9 Chronic obstructive pulmonary disease, unspecified; N40.0 Benign prostatic hyperplasia without lower urinary tract symptoms; Z91.14 Patient's other noncompliance with medication regimen; Z95.1 Presence of aortocoronary bypass graft; Z79.899 Other long term (current) drug therapy; I11.0 Hypertensive heart disease with heart failure; R10.9 Unspecified abdominal pain; K29.70 Gastritis, unspecified, without bleeding; I70.1 Atherosclerosis of renal artery
CPT/HCPCS: 36415; 71010-TC; 80048-TC; 80061-TC; 80076-TC; 83605-TC; 83880; 84443-TC; 84484-TC; 85025-TC; 85730-TC; 87081-TC; A9502; J1650; J2405; J2785; J7040; J7050; Q9967

== ENCOUNTER 2017-01-08 16:51 | Emergency (ER) | payer OTHER ==
[~2017-01-08] VITALS: Ht 170.2 cm; Wt 79.4 kg
[~2017-01-08 16:51] MED LIST changes: -ASPI-991 PO; +ASPI81TA2 PO; -DIAZ10TA4 PO; -HYDR-3326 PO; -Isosorbide Mononitrate PO; -METO25TA20 PO; -PANT40TA2 PO; -SIMV20TA2 PO; -TAMS-12 PO; -TRAZ-144 PO
--- NOTE | 2017-01-08 17:03 | NUR ---
bib ra from home called from aps, patient is verbally responsive, a/o x4, able to ambulate to bed, patient is placed on monitor, md at bedside upon arrival, will continue to monitor closely.
[2017-01-08 17:16] LABS: BASOPHILS % (AUTO) 0.4 % (0.0-2.0); EOSINOPHILS # (AUTO) 0.2 /CMM (0.0-0.7); EOSINOPHILS % (AUTO) 3.7 % (0.0-6.0); HEMATOCRIT 37 % (39-51); LYMPHOCYTES # (AUTO) 1.1 /CMM (0.8-4.8); LYMPHOCYTES % (AUTO) 19.2 % (20.0-44.0); MEAN CORPUSCULAR HEMOGLOBIN 34 PG (26.0-33.0); MEAN CORPUSCULAR HGB CONC 35 g/dl (31.0-36.0); MEAN CORPUSCULAR VOLUME 97 fL (80-96); MONOCYTES # (AUTO) 0.4 /CMM (0.1-1.30); MONOCYTES % (AUTO) 7.1 % (2.0-12.0); NEUTROPHILS # (AUTO) 4.1 /CMM (1.8-8.9); NEUTROPHILS % (AUTO) 69.6 % (43.0-81.0); PLATELET COUNT (AUTO) 250 /CMM (150-450); RDW COEFFICIENT OF VARIATION 16.2 (11.5-15.0); RED BLOOD CELL COUNT(AUTO) 3.84 MIL/uL (4.5-6.0); WHITE BLOOD COUNT (AUTO) 5.8 K/uL (4.3-11.0)
[2017-01-08 17:23] LABS: APPEARANCE,URINE Clear (CLEAR); BILIRUBIN,URINE SMALL (NEGATIVE); BLOOD, URINE Negative Ery/uL (NEGATIVE); COLOR,URINE Dark (YELLOW); KETONES,URINE Negative (NEGATIVE); LEUKOCYTE ESTERASE ,URINE Negative (NEGATIVE); NITRITE, URINE Negative (NEGATIVE); PH,URINE 5.5 (5.0-8.0); PROTEIN,URINE 30 mg/dl (NEGATIVE); UGLUCOSE Negative (NEGATIVE)
[2017-01-08 17:25] LABS: CALCIUM, SERUM 8.6 mg/dL (8.5-10.1); CARBON DIOXIDE 30 mmol/L (21-32); CHLORIDE 104 mmol/L (98-107); GLUCOSE 101 mg/dL (74-106); POTASSIUM 4.1 mmol/L (3.5-5.1); SODIUM SERUM 138 mmol/L (136-145); UREA NITROGEN, BLOOD 17 mg/dL (7-18)
--- NOTE | 2017-01-08 17:27 | NUR ---
MIKAYLA ZUNIGA LCSW FROM [employer] CAME HERE TO SEE HIM, CELL # [phone], WANTS INFORMATICA MDM ARCHITECT OR PSYCH CLINICIAN TO SEE HIM FOR POSSIBLE PLACEMENT SAYING THAT HE IS UNABLE TO TAKE CARE OF HIMSELF.
[2017-01-08 17:32] LABS: TROPONIN I 0.046 ng/mL (0.00-0.056)
[2017-01-08 17:33] LABS: ALCOHOL, BLOOD < 3 mg/dL (0-0)
--- NOTE | 2017-01-08 17:36 | NUR ---
CALLED EMILIA FLOOR POLISHER, LEFT MESSAGE ON VOICEMAIL
[2017-01-08 17:45] LABS: BACTERIA,URINE Few /HPF (None Seen); RBC,URINE 0-2 /HPF (0-2); SQUAMOUS EPITHELIAL CELL,UR Few /HPF (None Seen); WBC,URINE 0-2 /HPF (0-3)
[2017-01-08 17:46] LABS: HYALINE CASTS, URINE 0-2 /LPF (None Seen); MUCUS,URINE Many /LPF (None Seen)
[2017-01-08] MEDS ORDERED: DIVA125C5 PO (17:50)
[2017-01-08] MEDS ORDERED: ISOS60TA4 PO (17:50)
[2017-01-08] MEDS ORDERED: ATOR10TA PO (17:50)
[2017-01-08] MEDS ORDERED: TRAM50TA2 PO (17:50)
[2017-01-08] MEDS ORDERED: TAMS-12 PO (17:50)
[2017-01-08] MEDS ORDERED: ASPI-869 PO (17:50)
[2017-01-08] MEDS ORDERED: CLON0.5T4 PO (17:50)
[2017-01-08] MEDS ORDERED: PIOG45TA PO (17:50)
[2017-01-08] MEDS ORDERED: LOSA25TA13 PO (17:50)
[2017-01-08] MEDS ORDERED: PANT40TA4 PO (17:50)
[2017-01-08] MEDS ORDERED: ESCI10TA PO (17:50)
[2017-01-08] MEDS ORDERED: CARV3.122 PO (17:52)
--- NOTE | 2017-01-08 18:14 | NUR ---
RECEIVED CALL FROM BRANDEN WITH [facility], SHE ASKED FOR ME TO FAX FACESHEET AND PT ED NOTE TO [phone].
--- NOTE | 2017-01-08 18:30 | NUR ---
CALLED FOR FOOD TRAY
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
--- NOTE | 2017-01-08 18:50 | NUR ---
PATIENT GIVEN FOOD TRAY AND ATE FOOD AT 100% AND REQUESTED JUICE AND MILK, ABLE TO DRINK WITHOUT ANY PROBLEMS
--- NOTE | 2017-01-08 18:55 | NUR ---
REPORT GIVEN TO DOLORES SEGURA
--- NOTE | 2017-01-08 19:00 | NUR ---
PATIENT FOUND UNRESPONSIVE BY DOLORES NURSE, AND CODE WAS ACTIVATED
--- NOTE | 2017-01-08 19:05 | NUR ---
Ld LUNA NP AT BEDSIDE. COMPRESSIONS STARTED.
--- NOTE | 2017-01-08 19:05 | NUR ---
REC'D REPORT FROM IMELDA GARCÍA FOR WILD. WENT INTO THE ROOM TO CHECK PT. PT NON RESPONSIVE. PT IS NOT BREATHING. CODE CALLED.
--- NOTE | 2017-01-08 19:08 | NUR ---
CALLED NURSING SUP. FOR ICU BED
--- NOTE | 2017-01-08 19:08 | NUR ---
IV STARTED BY OLGA, IMELDA - 18G RFA
--- NOTE | 2017-01-08 19:12 | NUR ---
IO INSERTED INTO R TIBIA.
--- NOTE | 2017-01-08 19:13 | NUR ---
SEE BLUE CODE SHEET.
[2017-01-08 19:20] VITALS: BP 110/71
[2017-01-08] MEDS ORDERED: EPINEPHRINE (1:10,000) SYRINGE 1 MG/10 ML DISP.SYRIN IVP ONE (19:30)
[2017-01-08] MEDS ORDERED: CALCIUM CHLORIDE 1,000 MG/10 ML DISP.SYRIN IV ONE (19:30)
[2017-01-08] MEDS ORDERED: AMIODARONE 150 MG/3 ML VIAL IV ONE (19:30)
[2017-01-08] MEDS ORDERED: SODIUM BICARBONATE SYR 50 MEQ/50 ML DISP.SYRIN IV ONE (19:30)
--- NOTE | 2017-01-08 19:38 | NUR ---
RT FEMORAL CENTRAL LINE INSERTED BY DR. RODARTE
--- NOTE | 2017-01-08 19:49 | NUR ---
TIME OF CALLED BY DR. RODARTE
--- NOTE | 2017-01-08 20:30 | NUR ---
BODY TRANSFERED TO [facility]IA [facility] WITH EMT AND SECURITY.
== END 2017-01-08 20:30 | disposition expired ==
LOC: ER 16:55
DX: I46.9 Cardiac arrest, cause unspecified (principal); I49.01 Ventricular fibrillation; E11.9 Type 2 diabetes mellitus without complications; E78.5 Hyperlipidemia, unspecified; F03.90 Unspecified dementia, unspecified severity, without behavioral disturbance, psychotic disturbance, mood disturbance, and anxiety; G93.40 Encephalopathy, unspecified; F17.200 Nicotine dependence, unspecified, uncomplicated; I10 Essential (primary) hypertension; Z45.2 Encounter for adjustment and management of vascular access device; Z46.82 Encounter for fitting and adjustment of non-vascular catheter; Z79.82 Long term (current) use of aspirin; Z95.1 Presence of aortocoronary bypass graft
CPT/HCPCS: 31500; 36415; 36556; 80048; 80305; 81001; 82962; 84484; 85025; 92950; 93005; 99291; A4606; G0480; J0171; J0282; J3490 ×2; 81000-TC; C1751; Z7610